=== PATIENT | male | born 1945 | race Caucasian/White ===

== ENCOUNTER → 2016-06-08 | Outpatient (CLI) | payer MEDICARE ==
[~2016-06-08] MED LIST: ASPI-504 PO; CETI10TA20 PO; FEXO180T PO; GLUC500T12 PO; MONT10TA21 PO; MULT-954 PO; NF-FLON16G; NFAMINITAB PO
--- NOTE | 2016-06-08 12:48 | Diagnostic Imaging Report ---
CLINICAL INDICATION: Patient with squamous cell carcinoma of right parotid. Patient had parotid removed in August 2014. Patient is having right eye trouble, trouble keeping the eye open. Recheck. EXAM: MRI of the head and neck soft tissue performed without and with 20 cc of ProHance IV contrast. Sequences include sagittal T1, sagittal T2 fat-sat, axial T1, axial T2 fat-sat, coronal T2 fat-sat, coronal T1, right sagittal oblique T2 fat-sat, coronal T2, axial T2, axial T1 fat-sat post IV contrast, coronal T1 fat-sat post IV contrast, and right sagittal T1 fat-sat post IV contrast. COMPARISON: MRI of the brain performed without and with IV contrast dated 03/23/2014. FINDINGS: There are postop changes consistent with right parotidectomy. There is no enhancing mass or lymphadenopathy seen. There is no abnormal enhancement involving the mastoid and temporal bone portions of the right seventh cranial nerve. There is no abnormal enhancement or enlargement involving the foramen ovale, Meckel's cave region, or bilateral cavernous sinus regions. There is a small amount of fluid in the right mastoid air cells with no bony destructive changes seen. There is no significant fluid collection or fat stranding seen. The orbits and globes show no significant abnormality. The nasopharynx, oropharynx, hypopharynx, and laryngeal structures are relatively symmetric and unremarkable. The visualized portions of the tongue, sublingual and submandibular regions are unremarkable. Limited visualization of the intracranial structures shows no interval gross abnormality. Bony structures are unremarkable with no infiltrative or destructive process. There is minimal mucosal thickening involving the ethmoid sinus. IMPRESSION: 1. Postop changes consistent with right parotidectomy. There is no evidence of enhancing mass, lymphadenopathy, or concern for perineural tumor spread. The cavernous sinuses, skull base foramen, orbits, and globes show no significant abnormality. 2. Minimal ethmoid sinus mucosal thickening. Dictated by: Dictated on workstation # [id number]
== END ==
LOC: RAD 06:44
PROVIDERS: ATTEND Otolaryngology
DX: C07 Malignant neoplasm of parotid gland (principal)
CPT/HCPCS: 36415; 70543; 82565; 84520; A9579